=== PATIENT | male | born 2000 | race Caucasian/White ===

== ENCOUNTER 2019-08-10 09:09 | Outpatient (CLI) | payer OTHER ==
--- NOTE | 2019-08-10 09:58 | RAD ---
KUB INDICATION: History of renal stone COMPARISON: None FINDINGS: Bowel gas: There is a moderate amount retained stool within the colon Lung bases: Not visualized Additional findings: No suspicious calcification demonstrated. Osseous structures: No acute osseous abnormality is demonstrated. IMPRESSION: 1. Moderate amount of retained stool within the colon. No suspicious calcifications demonstrated.
== END 2019-08-10 09:10 | disposition home or self-care (01) ==
LOC: BICRAD 09:09
DX: N20.0 Calculus of kidney (principal); K59.00 Constipation, unspecified
CPT/HCPCS: 74018